=== PATIENT | female | born 2000 | race Caucasian/White ===

== ENCOUNTER → 2024-05-04 15:00 | Outpatient (REF) | payer OTHER, SELFPAY | LOC: HWRAD 15:00 | PROVIDERS: ATTENDING PHYSICIAN Obstetrics & Gynecology Gynecology; FAMILY PHYSICIAN Internal Medicine | DX: N92.0 Excessive and frequent menstruation with regular cycle (principal) | CPT/HCPCS: 76830; 76856 ==